=== PATIENT | female | born 1975 | race Caucasian/White ===

== ENCOUNTER 2019-02-24 09:57 | Emergency (ER) | payer OTHER ==
[~2019-02-24] VITALS: Ht 162.6 cm; Wt 91.2 kg
[2019-02-24 10:11] VITALS: Ht 162.6 cm; Wt 91.2 kg
[2019-02-24 12:02] VITALS: BP 138/81
== END 2019-02-24 12:02 | disposition home or self-care (01) ==
LOC: ED 09:57
DX: J30.9 Allergic rhinitis, unspecified (principal); J06.9 Acute upper respiratory infection, unspecified
CPT/HCPCS: J1100